=== PATIENT | female | born 1980 ===

== ENCOUNTER 2020-10-18 23:24 | Emergency (ER) | payer OTHER ==
[2020-10-19 00:15] VITALS: BP 135/98; PULSE 64; RESP 16; TEMP 97.8
--- NOTE | 2020-10-19 01:01 | ED ---
General Adult HPI - General Chief complaint: Recheck/Abnormal Lab/Rx Stated complaint: Covid Test Time Seen by Provider: 10/19/20 01:00 Source: patient Mode of arrival: ambulatory Limitations: no limitations - History of Present Illness Initial comments: 40-year-old female presents to the emergency room for a chief complaint of a coronavirus test. Patient needs a test in order to go to [place]. Patient denies any exposures or complaints.Patient has no other complaints at this time including shortness of breath, chest pain, abdominal pain, nausea or vomiting, headache, or visual changes. - Related Data Allergies Allergy/AdvReac Type Severity Reaction Status Date / Time No Known Allergies Allergy Verified 10/19/20 00:16 Review of Systems ROS Statement: Those systems with pertinent positive or pertinent negative responses have been documented in the HPI. ROS Other: All systems not noted in ROS Statement are negative. Past Medical History Past Medical History: Seizure Disorder History of Any Multi-Drug Resistant Organisms: None Reported Past Surgical History: No Surgical Hx Reported Past Psychological History: No Psychological Hx Reported Smoking Status: Never smoker Past Alcohol Use History: None Reported Past Drug Use History: None Reported General Exam Limitations: no limitations General appearance: alert Head exam: Present: atraumatic Eye exam: Present: normal appearance, PERRL, EOMI. Absent: scleral icterus, conjunctival injection ENT exam: Present: normal exam, mucous membranes moist Neck exam: Present: normal inspection, full ROM Respiratory exam: Absent: respiratory distress Neurological exam: Present: alert, normal gait Course Vital Signs 10/19/20 00:13 Temperature 97.8 F Pulse Rate 64 Respiratory 16 Rate Blood Pressure 135/98 O2 Sat by Pulse 995 H Oximetry Medical Decision Making - Medical Decision Making Test is negative, patient can be discharged home. - Lab Data Lab Results 10/19/20 Range/Units 00:13 Coronavirus (PCR) Not Detected (Not Detectd) Disposition Clinical Impression: Lab test negative for COVID-19 virus Disposition: HOME SELF-CARE Condition: Good Instructions (If sedation given, give patient instructions): Coronavirus Disease 2019 (COVID-19) Is patient prescribed a controlled substance at d/c from ED?: No Referrals: Randi Hale MD [STAFF PHYSICIAN] - 1-2 days Time of Disposition: 01:00
== END 2020-10-19 01:15 | disposition home or self-care (01) ==
LOC: EC 23:24
DX: Z11.52 Encounter for screening for COVID-19 (principal); Z20.822 Contact with and (suspected) exposure to COVID-19
CPT/HCPCS: 87635; 99282